=== PATIENT | female | born 1980 | race Caucasian/White ===

== ENCOUNTER 2017-02-24 20:17 | Emergency (ER) | payer MEDICAID ==
[~2017-02-24] VITALS: Ht 165.1 cm; Wt 72.6 kg
[2017-02-24 20:30] VITALS: BP 122/76
== END 2017-02-24 21:58 | disposition left against medical advice (07) ==
LOC: EDBD 20:17 → ER 20:24
DX: R10.31 Right lower quadrant pain (principal); Z53.21 Procedure and treatment not carried out due to patient leaving prior to being seen by health care provider